=== PATIENT | male | born 1945 | race Two or more races ===

== ENCOUNTER 2022-05-03 11:25 | Emergency (ER) | payer OTHER, MEDICAID ==
[~2022-05-03] VITALS: Ht 182.9 cm; Wt 72.0 kg
[2022-05-03 13:18] VITALS: BP 160/68
[2022-05-03] MEDS ORDERED: LIDOCAINE 1% HCL (LOCAL ANESTH.) INJ 20ML MDV IJ ONE (14:15)
[2022-05-03] MEDS ORDERED: CEPH-510 PO ×2 (14:29→14:36)
[2022-05-03] MEDS ORDERED: TETANUS-DIPTH-ACEL PERTUSSIS 0.5ML SYR Tdap IM ONE (14:45)
== END 2022-05-03 14:34 | disposition home or self-care (01) ==
LOC: ER 11:25 → EDBD 11:25 → ER 14:34
DX: S51.812A Laceration without foreign body of left forearm, initial encounter (principal); I10 Essential (primary) hypertension; J44.9 Chronic obstructive pulmonary disease, unspecified; Z90.49 Acquired absence of other specified parts of digestive tract; Z79.899 Other long term (current) drug therapy; W26.8XXA Contact with other sharp object(s), not elsewhere classified, initial encounter; Y93.89 Activity, other specified; Y92.89 Other specified places as the place of occurrence of the external cause; Y99.8 Other external cause status
CPT/HCPCS: 12002; 90471; 90715; 99283; J2001